=== PATIENT | female | born 1975 | race Two or more races ===

== ENCOUNTER → 2024-12-30 | Outpatient (CLI) | payer MEDICAID, SELFPAY ==
--- NOTE | 2024-12-30 10:45 | XR_ITS ---
Examination: Breast ultrasound, unilateral, left complete Date and time of exam: December 30, 2024 1137 hours INDICATIONS: Diagnosis fibrocystic breast disease Technique: Real-time chan scale ultrasonographic imaging performed left breast including all 4 quadrants as well as nipple retroareolar and axillary region. Findings: Multiple benign cysts, the largest in the 3:00 position 6 x 8 mm No solid nodules IMPRESSION: BI-RADS Category 2: Benign findings
--- NOTE | 2024-12-30 11:15 | XR_ITS ---
Examination: Diagnostic digital mammography, bilateral Computer aided detection 3-D breast Tomosynthesis, bilateral Date and time of exam: December 30, 2024 1113 hours Technique: Nonmagnified MLO, CC views of the breasts to been obtained, reconstructed from 3-D Tomosynthesis images. R2 computer aided detection program utilized for evaluation of suspicious masses and/or abnormal calcifications. 3-D Tomosynthesis images obtained. Findings: The breasts are heterogeneously dense, which may obscure small masses 23 mm focal asymmetry indistinct margins nipple level right breast on the CC view Breast biopsy marker upper outer right breast Grouped microcalcifications upper outer left breast mid to anterior depth 16mm focal asymmetry slightly below nipple level on the MLO view likely outer left breast on the CC view Impression: BI-RADS Category 0: Incomplete: Need additional imaging evaluation Recommend follow-up spot tomographic CC view 23 mm focal asymmetry nipple level right cc view as well as spot compression upper quadrant right breast on the MLO view Recommend follow-up spot medication films of microcalcifications upper outer left breast Recommend follow-up spot tomographic views of 16 mm focal asymmetry upper outer left breast anterior depth Recommend follow-up bilateral breast sonography to complete the workup.
== END | disposition home or self-care (01) ==
LOC: CDIM 11:03
PROVIDERS: Referring Provider Registered Nurse; Visit Provider Registered Nurse
DX: N64.89 Other specified disorders of breast (principal); R92.0 Mammographic microcalcification found on diagnostic imaging of breast; R92.8 Other abnormal and inconclusive findings on diagnostic imaging of breast
CPT/HCPCS: 76641; 77062; 77066; G0279